=== PATIENT | female | born 1980 | race Caucasian/White ===

== ENCOUNTER 2020-03-28 15:29 | Inpatient (IN) | payer MEDICARE, MEDICAID ==
[~2020-03-28] VITALS: Ht 170.2 cm; Wt 57.0 kg
[2020-03-28] MEDS ORDERED: MAG HYDROX/AL HYDROX/SIMETH ES 30 ML SUSPENSION UDCUP PO PRN (16:15)
[2020-03-28] MEDS ORDERED: LOPERAMIDE HCL 2 MG CAPSULE PO PRN (16:15)
[2020-03-28] MEDS ORDERED: MAGNESIUM HYDROXIDE SUSPENSION 30 ML UDCUP PO PRN (16:15)
[2020-03-28] MEDS ORDERED: LORazepam 2 MG TABLET PO PRN (16:15)
[2020-03-28] MEDS ORDERED: TUBERCULIN, PURIFIED PROTEIN DERIVATIVE 5 TU/0.1 ML SYRINGE ID ONE ×2 (16:15)
[2020-03-28] MEDS ORDERED: OLANZapine 5 MG RAPDIS TABLET PO PRN (16:15)
[2020-03-28] MEDS ORDERED: HydrOXYzine PAMOATE 50 MG CAPSULE PO PRN (16:15)
[2020-03-28] MEDS ORDERED: GuaiFENesin/D-METHORPHAN [SUGAR-FREE] 200-20MG/10 ML SYRUP UDCUP PO PRN (16:15)
[2020-03-28] MEDS ORDERED: PROMETHAZINE HCL 25 MG TABLET PO PRN (16:15)
[2020-03-28] MEDS ORDERED: ZOLPIDEM TARTRATE 10 MG TABLET PO PRN (16:15)
[2020-03-28] MEDS ORDERED: OLANZapine 10 MG RAPDIS TABLET PO SCH (21:00)
[2020-03-28] MEDS ORDERED: MELATONIN 5 MG TABLET PO SCH (21:00)
[2020-03-28] MEDS ORDERED: DIVALPROEX SODIUM 500 MG ER TABLET PO SCH (21:00)
[2020-03-28] MEDS ORDERED: INFLUENZA VIRUS VACCINE QVS 2020-21 (6MO+)/PF 60 MCG/0.5 ML SYRINGE IM ONE (23:00)
[2020-03-29 06:14] VITALS: BP 112/62
[2020-03-29] MEDS: THIAMINE 100 MG TABLET PO SCH ×2 (08:01→16:32)
[2020-03-29 08:12] VITALS: BP 124/78
[2020-03-29] MEDS ORDERED: MULTIVITAMINS WITH MINERALS, THERAPEUTIC TABLET PO SCH (09:00)
[2020-03-29] MEDS ORDERED: NALTREXONE HCL 50 MG TABLET PO SCH (09:00)
[2020-03-29] MEDS ORDERED: OMEGA-3/DHA/EPA/FISH OIL 1,000 MG CAPSULE PO SCH (09:00)
[2020-03-29] MEDS ORDERED: FOLIC ACID 1 MG TABLET PO SCH (09:00)
[2020-03-29] MEDS ORDERED: OLAN10TA22 PO (16:17)
[2020-03-29] MEDS ORDERED: OMEG-135 PO (16:17)
[2020-03-29] MEDS ORDERED: NALT50TA PO (16:17)
[2020-03-29] MEDS ORDERED: DIVA-80 PO (16:17)
[2020-03-29] MEDS ORDERED: MELA5TAB3 PO (16:17)
[2020-03-29 16:22] VITALS: BP 129/86
[2020-03-30] MEDS ORDERED: BuPROPion HCL 75 MG TABLET PO SCH (09:00)
== END 2020-03-29 21:32 | disposition home or self-care (01) | DRG 885 ==
LOC: B3A 21:57
PROVIDERS: ADMIT Psychiatry & Neurology Psychiatry; ATTEND Psychiatry & Neurology Psychiatry
DX: F30.10 Manic episode without psychotic symptoms, unspecified (principal); Z91.041 Radiographic dye allergy status
CPT/HCPCS: 87081; 90686; 90749; G0008; Z7610